=== PATIENT | female | born 1930 | race Caucasian/White ===

== ENCOUNTER 2016-11-20 08:58 | Observation (INO) | payer MEDICARE ==
[2016-11-20 09:33] LABS: BASOPHILS 0.3 % (0.0-2.0); EOSINOPHILS 0.3 % (0.0-6.0); HEMATOCRIT 39.4 % (36.0-48.0); HEMOGLOBIN 13.4 g/dL (12.0-16.0); LYMPHOCYTES 11.6 % (20.0-40.0); LYMPHOCYTES# 1.2 X 10^3uL (0.8-3.8); MEAN CELL VOLUME 86.5 fL (84.0-102.0); MEAN CORPUS. HGB CONCENTRATION 33.9 g/dL (32.0-36.0); MEAN CORPUSCULAR HEMOGLOBIN 29.4 pg (29.0-35.0); MEAN PLATELET VOLUME 8.3 fL (7.4-10.4); MONOCYTES 7.9 % (2.0-10.0); MONOCYTES# 0.8 X 10^3uL (0.2-1.0); NEUTROPHILS 79.9 % (54.0-75.0); NEUTROPHILS# 8.3 X 10^3uL (2.6-6.7); PLATELET COUNT 242 X 10^3uL (130-440); RED BLOOD COUNT 4.55 X 10^6uL (4.20-6.10); RED CELL DISTRIBUTION WIDTH 13.3 % (11.5-14.5); WHITE BLOOD COUNT 10.3 X 10^3uL (3.9-10.7)
[2016-11-20] MEDS ORDERED: ONDANSETRON HCL 4 MG/2 ML VIAL ONE ×2 (09:36→10:23)
[2016-11-20 09:46] LABS: BLOOD UREA NITROGEN 9 mg/dL (7-17); CHLORIDE 91 mmol/L (98-107); CREATININE 0.5 mg/dL (0.5-1.0); GLUCOSE 125 mg/dL (70-100); POTASSIUM 3.2 mmol/L (3.5-5.1); SODIUM 128 mmol/L (137-145)
[2016-11-20] MEDS ORDERED: KETOROLAC TROMETHAMINE 30 MG/ML VIAL ONE (10:07)
[2016-11-20] MEDS ORDERED: ACETAMINOPHEN 325 MG TABLET PO PRN (10:39)
[2016-11-20] MEDS ORDERED: HOME MEDICATION LIST NEEDED 1 EA EACH MC ONE (10:39)
[2016-11-20 10:49] LABS: URINE MUCUS NONE SEEN (Up to 25%); URINE RBC NONE SEEN (0-5/hpf); URINE SQUAMOUS EPITHELIAL CELL NONE SEEN (<= 15/hpf); URINE WBC NONE SEEN (0-4/hpf)
[2016-11-20] MEDS ORDERED: POTASSIUM CHLORIDE/NS 1,000 ML IV SCH (11:00)
[2016-11-20 11:10] LABS: URINE APPEARANCE CLEAR; URINE BILIRUBIN NEGATIVE (NEGATIVE); URINE BLOOD TRACE (NEGATIVE); URINE COLOR YELLOW; URINE GLUCOSE NORMAL (NEGATIVE); URINE KETONE 5mg/dL (NEGATIVE); URINE LEUKOCYTE ESTERASE NEGATIVE (NEGATIVE); URINE NITRITE POSITIVE (NEGATIVE); URINE PROTEIN NEGATIVE (NEG - TRACE); URINE UROBILINOGEN 0.2mg/dL (Normal) (NEG-1mg/dL)
[2016-11-20 11:11] LABS: URINE BACTERIA >50 ORGANISMS/hpf (<10/hpf)
[2016-11-20] MEDS ORDERED: METOCLOPRAMIDE HCL 10 MG/2 ML VIAL ONE (11:12)
[2016-11-20] MEDS ORDERED: NORMAL SALINE 100 ML IV ONE (11:33)
[2016-11-20] MEDS ORDERED: CEFTRIAXONE SODIUM 1,000 MG/10 ML VIAL ONE (11:33)
--- NOTE | 2016-11-20 11:35 | ER PHYSICIAN DOCUMENTATION ---
Physician Documentation [facility] Name:Opal Murray Age:86 yrs Sex:Female :1930 Arrival Date:11/20/2016 Time:08:58 Bed3 Private MD: Antione Kee Disposition: 11/20/16 10:35 Admit ordered for Aguila Chery. Preliminary diagnosis are Hypokalemia, Hyponatremia, Dehydration, Weakness, Difficulty Walking. - Bed requested for Medical/Surgical. - Condition is Fair. - Problem is new. - Symptoms are unchanged. 23 HR OBS Yes HPI: 11/20 10:08 This 86 yrs old Female presents to ER via Private Vehicle with complaints of jm LIGHTHEADED. 10:08 The patient presents to the emergency department with nausea, without any complaints of jm abdominal pain. Onset: The symptom(s)/episode began/occurred yesterday, and became worse today. Possible causes: travel, possible altitude . The symptoms are alleviated by nothing. Associated signs and symptoms: Pertinent positives: dizziness, feels off, unsteady, mildly confused, and weak. . Severity of symptoms: in the emergency department the symptoms are unchanged. The patient has not experienced similar symptoms in the past. The patient has not recently seen a physician. Pt here from [place], [place] visiting her son. She flet fine for 2 days when she arrived, but has slowly started to get weak, dizzy, and nauseated. Pt's never felt like this before. She is very healthy, besides some arthritis. . Historical: - Allergies: PENICILLINS; - Home Meds: 1. Metoprolol Tartrate Oral 2. unk other medication - PMHx: OSTEOPOROSIS; - Tetanus: < 10 years. - Ebola Screening: : Patient denies exposure to infectious person. Patient denies travel to an Ebola-affected area in the 21 days before illness onset. . - Immunization history: Flu Vaccine < 1 year. - Social history: Smoking status: Patient states was never smoker of tobacco. Patient uses alcohol occasionally. Patient/guardian denies using marijuana. ROS: 10:10 Constitutional: Positive for fatigue, malaise. jm 10:10 Eyes: Negative for blurry vision. 10:10 ENT: Negative for rhinorrhea, sinus congestion, sinus pain, sore throat. 10:10 Cardiovascular: Negative for chest pain, palpitations. 10:10 Cardiovascular: Negative for 10:10 Respiratory: Positive for dyspnea on exertion, Negative for cough. 10:10 Abdomen/GI: Positive for nausea, Negative for abdominal pain, vomiting, diarrhea. 10:10 Back: Negative for radiated pain, acute changes. 10:10 : Negative for urinary symptoms, urinary frequency, pelvic pain. 10:10 MS/extremity: Negative for rash, swelling. 10:10 Skin: Negative for diaphoresis, rash. 10:10 Neuro: Positive for dizziness, headache, weakness. 10:10 Psych: Negative for drug dependence, alcohol dependence. 10:10 All other systems are negative. Exam: 10:11 Constitutional: The patient appears alert, awake. jm 10:11 Head/face: Exam is negative for obvious evidence of injury or deformity, contusion. 10:11 Eyes: Periorbital structures: appear normal, Pupils: equal, round, and reactive to light and accomodation, Extraocular movements: no acute changes, Conjunctiva: normal. 10:11 ENT: Mouth: Oral mucosa: dry, Posterior pharynx: is normal. 10:11 Cardiovascular: Rate: normal, Rhythm: regular. 10:11 Respiratory: Respirations: normal, Breath sounds: are normal. 10:11 Abdomen/GI: Bowel sounds: normal, Palpation: soft. 10:11 Back: pain, is absent, CVA tenderness, is absent. 10:11 : CVA tenderness, is absent, Bladder: is normal. 10:11 Musculoskeletal/extremity: Circulation is intact in all extremities. Sensation intact. 10:11 Skin: Appearance: Color: pink, no rash present. 10:11 Neuro: Mentation: is normal, Memory: is normal. Vital Signs: 09:10 BP 186 / 88; Pulse 64; Resp 18; Temp 98.0; Pulse Ox 93% on R/A; Height [address] (162.56 cm); Pain 1/10; 10:02 BP 124 / 98; Pulse 63; Resp 28; Pulse Ox 95% on R/A; sj 10:31 BP 156 / 75; Pulse 63; Pulse Ox 97% on 2 lpm NC; st 10:52 BP 156 / 75; Pulse 63; Pulse Ox 94% on R/A; sj MDM: 09:09 Patient medically screened. 10:13 Differential diagnosis: viral gastroenteritis, altitude sickness, dehydration, jm electrolyte, UTI. Data reviewed: vital signs, nurses notes, lab test result(s), and as a result, I will admit patient. Counseling: I had a detailed discussion with the patient and/or guardian regarding: the historical points, exam findings, and any diagnostic results supporting the discharge/admit diagnosis, lab results, the need for further work-up and treatment in the hospital. Physician consultation: Aguila Chery MD regarding admission, and will see patient shortly, later today. Admission orders: after a detailed discussion of the patient's condition and case, the admit orders are written by me. ED course: Sx sound altitude like, but strangely she felt fine at first and is now getting worse. Labs show low NA and K, which I believe are the cause of her sx. Will admit for gentle hydrations and electrolyte replacement. . 11/20 09:41 Order name: CBC AUTO DIF, MDIF/RMOR IF IND; Complete Time: 10:04 EDMS 11/20 09:47 Order name: BASIC METABOLIC PANEL; Complete Time: 10: EDMS 11/20 11:09 Order name: URINE SODIUM,RANDOM; Complete Time: 11:19 EDMS 11/20 11:09 Order name: URINE CREATININE,RANDOM; Complete Time: 11:19 EDMS 11/20 11:12 Order name: UA W/ MICRO -CULTURE IF IND; Complete Time: 11:19 EDMS 11/20 10:09 Order name: Oxygen; Complete Time: 10:09 st Dispensed Medications: 09:29 Drug: Zofran 4 mg; Route: IVP; Infused Over: 2 mins; Site: left antecubital; st 10:48 Follow up: Response: Nausea unchanged st 09:50 Drug: NS 0.9% 1000 ml; Route: IV; Rate: bolus; Site: left antecubital; st 10:49 Follow up: IV Status: Completed infusion; IV Intake: 1000ml st 10:00 Drug: Toradol 15 mg; Route: IVP; Site: left antecubital; sj 11:34 Follow up: Response: Pain is decreased st 10:47 Drug: Zofran 4 mg; Route: IVP; Infused Over: 2 mins; Site: left antecubital; st 11:07 Follow up: Response: Nausea unchanged st 11:13 Drug: Reglan 5 mg; Route: IVP; Site: left antecubital; 11:34 Follow up: Response: Nausea is decreased st 11:25 Drug: Rocephin 1 grams; Route: IVPB; Site: left antecubital; st 11:34 Follow up: IV Status: Infusion continued upon admission st Signatures: Love Mayen RN RN st Meyer, John, MD MD jm Janzen, Sarah
--- NOTE | 2016-11-20 11:35 | ER NURSING DOCUMENTATION ---
Nurse's Notes [facility] Name:Opal uMrray Age:86 yrs Sex:Female :1930 Arrival Date:11/20/2016 Time:08:58 Bed3 Private MD: Diagnosis:Hypokalemia;Hyponatremia;Dehydration;Weakness;Difficulty Walking Presentation: 11/20 09:10 Presenting complaint: Patient states: pt has had N/V since yesterday. Son reports some st minor confusion today and that she just did not seem to be doing well. Transition of care: Home. 09:10 Method Of Arrival: Private Vehicle st 09:22 Acuity: JOSHUA 3 st Triage Assessment: 09:10 General: Appears uncomfortable, Behavior is cooperative. Pain: Complains of pain in st abdomen Pain currently is 1 out of 10 on a pain scale. EENT: Oral mucosa is dry. Neuro: No deficits noted. Cardiovascular: hypertensive.. Respiratory: No deficits noted. GI: Abdomen is flat, non- distended Abd is soft X 4 quads Abdomen is tender to palpation X 4 quads. Reports intolerance of fluids, intolerance of food, nausea, vomiting. Historical: - Allergies: PENICILLINS; - Home Meds: 1. Metoprolol Tartrate Oral 2. unk other medication - PMHx: OSTEOPOROSIS; - Tetanus: < 10 years. - Ebola Screening: : Patient denies exposure to infectious person. Patient denies travel to an Ebola-affected area in the 21 days before illness onset. . - Immunization history: Flu Vaccine < 1 year. - Social history: Smoking status: Patient states was never smoker of tobacco. Patient uses alcohol occasionally. Patient/guardian denies using marijuana. Screenin:00 Infectious Disease Risk None. Abuse screen: Denies threats or abuse. Denies injuries st from another. pt feels safe at home. Nutritional screening: No deficits noted. Assessment: 10:09 General: pt still not feeling well. pt O2 saturation drop when she dozes. . st 02 10:35 Reassessment: urine lab followup: patient was admitted to [facility] yesterday and discharged nf this morning with a prescription for Bactrim per [facility]. Vital Signs: 11/20 09:10 BP 186 / 88; Pulse 64; Resp 18; Temp 98.0; Pulse Ox 93% on R/A; Height [address] (162.56 cm); Pain 1/10; 10:02 BP 124 / 98; Pulse 63; Resp 28; Pulse Ox 95% on R/A; sj 10:31 BP 156 / 75; Pulse 63; Pulse Ox 97% on 2 lpm NC; st 10:52 BP 156 / 75; Pulse 63; Pulse Ox 94% on R/A; sj ED Course: 09:01 Patient arrived in ED. ama 09:09 Antione Ahn MD is Attending Physician. tor 09:22 Love Mayen RN is Primary Nurse. st 09:[address] 09:22 Inserted peripheral IV: 20 gauge in left antecubital area and blood collected. st 10:00 Valuables Remains with patient Patient has correct armband on for positive st identification. Placed in gown. Bed in low position. Call light in reach. Side rails up X2. Pulse Ox - RN Monitoring Only NIBP On - RN Monitoring Only. Warm blanket given. 10:09 Oxygen Oxygen administration via nasal cannula @ 2L/min. st 10:35 Aguila Chery MD is Admitting Physician. tor Administered Medications: 09:29 Drug: Zofran 4 mg; Route: IVP; Infused Over: 2 mins; Site: left antecubital; st 10:48 Follow up: Response: Nausea unchanged st 09:50 Drug: NS 0.9% 1000 ml; Route: IV; Rate: bolus; Site: left antecubital; st 10:49 Follow up: IV Status: Completed infusion; IV Intake: 1000ml st 10:00 Drug: Toradol 15 mg; Route: IVP; Site: left antecubital; sj 11:34 Follow up: Response: Pain is decreased st 10:47 Drug: Zofran 4 mg; Route: IVP; Infused Over: 2 mins; Site: left antecubital; st 11:07 Follow up: Response: Nausea unchanged st 11:13 Drug: Reglan 5 mg; Route: IVP; Site: left antecubital; sj 11:34 Follow up: Response: Nausea is decreased st 11:25 Drug: Rocephin 1 grams; Route: IVPB; Site: left antecubital; st 11:34 Follow up: IV Status: Infusion continued upon admission st Intake: 10:49 IV: 1000ml; Total: 1000ml. st Outcome: 10:35 Decision to Admit by Provider. tor 11:25 [address] given to [place] st 11:33 Admitted to Med/surg via stretcher. st 11:33 Condition: improved 11:33 Instructed on need to admit 11:35 Patient left the ED. st Signatures: Love Mayen RN RN st Friel, Nicole, RN RN nf Meyer, John, MD MD jm Averdick, Andrew, Reg Reg ama Janzen, Sarah
[2016-11-20] MEDS: MELOXICAM 7.5 MG TABLET PO SCH (14:02)
--- NOTE | 2016-11-20 17:54 | HISTORY & PHYSICAL ---
DATE OF ADMISSION: 11/20/16 CHIEF COMPLAINT: Nausea. HISTORY OF PRESENT ILLNESS: This is an 86-year-old female from [place], visiting family in [place]. She arrived here 3 days ago but since then developed a 1-day history of nausea, dizziness, lightheadedness and generalized weakness. No vomiting, diarrhea, constipation, melena, hematochezia or dysuria. No chest pain, chest pressure, tightness or angina symptoms. No palpitations or shortness of breath. The patient denies any confusion, disorientation or memory problems, although the ER note indicates an element of confusion. She gets some mild arthralgias and myalgias. She acknowledges poor p.o. fluid intake. ER evaluation revealed dehydration, hyponatremia and hypokalemia. ALLERGIES: Penicillin. MEDICATIONS Vitamin D 50,000 units p.o. q.week. Levothyroxine 50 mcg p.o. q.day. Meloxicam 15 mg p.o. q.day. Metoprolol tartrate 50 mg p.o. b.i.d. Tramadol 50 mg p.o. q.6h. PAST MEDICAL HISTORY 1. Hypertension. 2. Hypothyroidism. 3. Osteoarthritis. 4. Osteoporosis. SOCIAL HISTORY: , 2 children. A retired women designer. No smoking. No alcohol. FAMILY HISTORY: Father developed lung disease related to gold mining. REVIEW OF SYSTEMS: No heart, lung, kidney, liver, diabetes, seizures, peptic ulcer disease, hyperlipidemia, skin, allergy or bleeding disorders. Nocturia times 1. PREVENTIVE HEALTH: Get annual flu. Had Pneumovax. PHYSICAL EXAMINATION VITAL SIGNS: Blood pressure 186/88, pulse 64, respiratory rate 18, temperature 98.0, room air pulse oximetry 93%. By the time the patient was admitted, blood pressure was down to 156/75, pulse 63. GENERAL: Elderly frail female, NAD, alert and oriented times 3. Hard of hearing. HEENT: EOMI. PERRL, Fundi benign. No coryza. Pharynx not injected. Dry mouth. NECK: No adenopathy, thyromegaly or bruits. Supple. CHEST: Clear. No rales, rhonchi or wheezes. Good breath sounds and symmetry throughout. COR: RRR without murmurs, gallops, rubs or clicks. No jugular venous distention. No ectopy. ABDOMEN: Soft, nontender. No hepatosplenomegaly. No masses. No bruits. Bowel sounds present. LOWER EXTREMITIES: No clubbing, cyanosis or edema. Good pulses. NEUROLOGIC: Cranial nerves 2 through 12 are intact. Motor 5/5. Sensory intact. SKIN: Marked decreased skin turgor of at least 10%. Dehydration. LABORATORY STUDIES: WBC 10.3, H&H 13.4/39.4, platelets 242,000. Sodium 128, potassium 3.2, chloride 91, CO2 25, BUN 9, creatinine 0.5, glucose 125, calcium 8.0. Urinalysis: Specific gravity 1.010, ketones present, trace blood, positive nitrates. Micro shows greater than 50 bacterial organisms. No WBCs or RBCs. Urine sodium 55. Urine creatinine 12.1. ASSESSMENT 1. Severe dehydration with orthostatic hypotension. 2. Hyponatremia. 3. Hypokalemia. 4. Hypertension. PLAN 1. Gentle IV hydration with normal saline with 20 mEq of KCl at 100 mL/hour. 2. Recheck BMP in a.m. 3. The patient received Rocephin 1 g IV in the ER and will switch to p.o. antibiotics in the a.m. 4. Encourage good p.o. fluid intake. MTDD
[2016-11-20 23:32] VITALS: RESP 18
[2016-11-21 06:35] VITALS: BP 178/69; PULSE 66; TEMP 98.8; O2SAT 92
[2016-11-21 06:40] LABS: BLOOD UREA NITROGEN 8 mg/dL (7-17); CHLORIDE 99 mmol/L (98-107); CREATININE 0.5 mg/dL (0.5-1.0); GLUCOSE 93 mg/dL (70-100); POTASSIUM 3.3 mmol/L (3.5-5.1); SODIUM 134 mmol/L (137-145)
[2016-11-21 06:43] LABS: CALCIUM 7.4 mg/dL (8.4-10.2)
[2016-11-21] MEDS: MELOXICAM 7.5 MG TABLET PO SCH (08:06)
[2016-11-21] MEDS ORDERED: SULFAMETHOXAZOLE/TMP 800/160MG 1 EA TABLET PO SCH (09:00)
[2016-11-21] MEDS ORDERED: LEVOTHYROXINE 50 MCG TABLET PO SCH (09:00)
[2016-11-21] MEDS ORDERED: ONDANSETRON ODT 4 MG TAB.RAPDIS ONE (09:13)
--- NOTE | 2016-11-21 09:27 | PROGRESS NOTE: IM SOAP ---
IM: PN Subjective Interval history: Feeling back to normal No N/V. Improved PO fluid intake. Urinating well. No dysuria. No flank pain IM: PN Objective Exam - I&O/Vital Signs I&O: Intake & Output 11/20/16 11/21/16 11/21/16 21:59 05:59 13:59 Intake Total 700 850 Output Total 500 Balance 200 850 Intake: IV 500 Left Antecubital 500 Oral 700 350 Output: Urine 500 Other: Urine Appearance Clear Urine Color Straw Voiding Method Toilet Toilet # Voids 2 # Bowel Movements 0 Vital Signs: Last Vital Signs Temp 37.1 C 11/21/16 06:34 Pulse 66 11/21/16 06:34 Resp 18 11/21/16 06:34 BP 178/69 11/21/16 06:34 Pulse Ox 92 11/21/16 06:34 Oxygen Delivery Method Room Air - Cardiovascular Cardiovascular exam: Present: RRR. Absent: systolic murmur - GI/Abdominal GI/Abdominal exam: Present: soft. Absent: tenderness - Extremities Exam Extremities exam: Absent: calf tenderness, edema - Back Exam Back exam: Absent: CVA tenderness (L), CVA tenderness (R) - Lab Labs: Laboratory Last Values WBC 10.3 X 10^3uL (3.9-10.7) 11/20/16 09:15 RBC 4.55 X 10^6uL (4.20-6.10) 11/20/16 09:15 Hgb 13.4 g/dL (12.0-16.0) 11/20/16 09:15 Hct 39.4 % (36.0-48.0) 11/20/16 09:15 MCV 86.5 fL (84.0-102.0) 11/20/16 09:15 MCH 29.4 pg (29.0-35.0) 11/20/16 09:15 MCHC 33.9 g/dL (32.0-36.0) 11/20/16 09:15 RDW 13.3 % (11.5-14.5) 11/20/16 09:15 Plt Count 242 X 10^3uL (130-440) 11/20/16 09:15 MPV 8.3 fL (7.4-10.4) 11/20/16 09:15 Neutrophils % 79.9 % (54.0-75.0) H 11/20/16 09:15 Lymphocytes % 11.6 % (20.0-40.0) L 11/20/16 09:15 Eosinophils % 0.3 % (0.0-6.0) 11/20/16 09:15 Basophils % 0.3 % (0.0-2.0) 11/20/16 09:15 Neutrophils # 8.3 X 10^3uL (2.6-6.7) H 11/20/16 09:15 Lymphocytes # 1.2 X 10^3uL (0.8-3.8) 11/20/16 09:15 Monocytes 7.9 % (2.0-10.0) 11/20/16 09:15 Monocytes # 0.8 X 10^3uL (0.2-1.0) 11/20/16 09:15 Eosinophils # 0.0 X 10^3uL (0.0-0.4) 11/20/16 09:15 Basophils # 0.0 X 10^3uL (0.0-0.1) 11/20/16 09:15 Sodium 134 mmol/L (137-145) L 11/21/16 06:00 Potassium 3.3 mmol/L (3.5-5.1) L 11/21/16 06:00 Chloride 99 mmol/L (98-107) 11/21/16 06:00 Carbon Dioxide 26 mmol/L (22-30) 11/21/16 06:00 BUN 8 mg/dL (7-17) 11/21/16 06:00 Creatinine 0.5 mg/dL (0.5-1.0) 11/21/16 06:00 GFR Calculation Not Reportable 11/21/16 06:00 Glucose 93 mg/dL (70-100) 11/21/16 06:00 Calcium 7.4 mg/dL (8.4-10.2) L* 11/21/16 06:00 Urine Color Yellow 11/20/16 10:40 Urine Appearance Clear 11/20/16 10:40 Urine pH 7.0 (5-7) 11/20/16 10:40 Ur Specific [place] 1.010 (0.001-1.035) 11/20/16 10:40 Urine Protein Negative (NEG - TRACE) 11/20/16 10:40 Urine Ketones 5mg/dl (NEGATIVE) A 11/20/16 10:40 Urine Blood Trace (NEGATIVE) A 11/20/16 10:40 Urine Nitrate Positive (NEGATIVE) A 11/20/16 10:40 Urine Bilirubin Negative (NEGATIVE) 11/20/16 10:40 Urine Urobilinogen 0.2mg/dl (normal) (NEG-1mg/dL) 11/20/16 10:40 Ur Leukocyte Esterase Negative (NEGATIVE) 11/20/16 10:40 Urine RBC None seen (0-5/hpf) 11/20/16 10:40 Urine WBC None seen (0-4/hpf) 11/20/16 10:40 Ur Squamous Epith Cells None seen (<= 15/hpf) 11/20/16 10:40 Urine Bacteria >50 organisms/hpf (<10/hpf) A 11/20/16 10:40 Urine Mucus None seen (Up to 25%) 11/20/16 10:40 Urine Creatinine 12.1 mg/dL 11/20/16 10:40 Urine Sodium 55 mmol/L (30-90) 11/20/16 10:40 Urine Glucose Normal (NEGATIVE) 11/20/16 10:40 Assessment and Plan - Date of Encounter Date of Encounter: 11/21/16 (1) Dehydration Status: Resolved Assessment and plan: D/C Home Current Visit: Yes (2) Hypokalemia Status: Acute Assessment and plan: KCl 40meq PO x 1 Current Visit: Yes (3) Hyponatremia Status: Resolved Current Visit: Yes (4) UTI (urinary tract infection) Status: Acute Assessment and plan: Bactrim Current Visit: Yes (5) Hypertension Status: Acute Assessment and plan: BP will be managed on outpt basis Current Visit: Yes - Time Spent With Patient Total time spent with greater than 50% in coordination of care (as documented) at patient's floor/unit and/or counseling patient: Quality Questions - VTE Prophylaxis Assessment VTE Present on Admission?: No Patient at risk for venous thromboembolism?: No VTE Risk Level: Very Low Risk VTE Medical Contraindication: Treatment not indicated
[2016-11-21] MEDS ORDERED: POTASSIUM CHLORIDE ER 20 MEQ TABLET PO SCH (10:00)
--- NOTE | 2016-11-21 10:06 | DISCHARGE SUMMARY ---
DATE OF ADMISSION: 11/20/16 DATE OF DISCHARGE: 11/21/16 DIAGNOSES 1. Dehydration. 2. Hyponatremia. 3. Hypokalemia. 4. Urinary tract infection. 5. Hypertension. HISTORY OF PRESENT ILLNESS: This is an 86-year-old female from [place], visiting family in [place]. She arrived 3 days prior to admission. However , one day prior to admission she began to develop nausea, dizziness, lightheadedness and generalized weakness. No vomiting, diarrhea, constipation, melena, hematochezia or dysuria. No chest pain, chest pressure, chest tightness or angina symptoms. No palpitations or shortness of breath. The patient denied any confusion, disorientation or memory problems, although the ER note indicates an element of confusion. She has some mild arthralgias and myalgias. She acknowledged poor p.o. fluid intake. ER evaluation revealed dehydration, hyponatremia and hypokalemia. Please see previously dictated history and physical for further details. HOSPITAL COURSE: The patient was admitted with severe dehydration with orthostatic hypotension with associated hyponatremia and hypokalemia. She was hydrated with normal saline with 20 mEq of KCl overnight and by the following day these had resolved. She did require one extra dose of KCl 40 mEq p.o. times 1. Blood pressure did come up and is willing to be monitored and managed on an outpatient basis. In addition, she was found to have a UTI for which she received a single dose of Rocephin 1 g IV in the ER and then was switched to Bactrim DS 1 tablet p.o. b.i.d. on an outpatient basis. Urine culture is pending. DISCHARGE INSTRUCTIONS: The patient may participate in activities as able. She is on a regular diet and is encouraged to increase p.o. fluid intake to 2.5 quarts per day. DISCHARGE FOLLOWUP: She will follow up with her regular physician next week if needed. DISCHARGE MEDICATIONS Bactrim DS 1 tablet p.o. b.i.d. times 7 days. Metoprolol tartrate 50 mg p.o. b.i.d. Meloxicam 15 mg p.o. q.day. Levothyroxine 50 mcg p.o. q.day. Tramadol 50 mg p.o. q.6h p.r.n. Vitamin D 50,000 units p.o. q.week. MTDD
== END 2016-11-21 09:03 | disposition home or self-care (01) ==
LOC: ER 08:58 → IN 11:20
PROVIDERS: ADMIT Family Medicine; ATTEND Family Medicine
DX: E87.1 Hypo-osmolality and hyponatremia (principal); E87.6 Hypokalemia; N39.0 Urinary tract infection, site not specified; I10 Essential (primary) hypertension; E03.9 Hypothyroidism, unspecified; M81.0 Age-related osteoporosis without current pathological fracture; M15.9 Polyosteoarthritis, unspecified; Z79.899 Other long term (current) drug therapy
CPT/HCPCS: 36415; 80048; 81001; 82570; 84300; 85025; 87077; 87086; 87186; 96361; 96374; 96375; 96376; 99217; 99219; 99285; G0378; J0696; J1885; J2405; J2765; J3480